=== PATIENT | male | born 1980 | race Caucasian/White ===

== ENCOUNTER 2017-04-29 17:28 | Emergency (ER) | payer OTHER ==
[~2017-04-29] VITALS: Ht 170.2 cm; Wt 66.7 kg
[2017-04-29] MEDS ORDERED: NORCO 5-325 TA1 EACH PO (18:18)
[2017-04-29] MEDS ORDERED: KEFLEX500 M1 PO (18:18)
[2017-04-29 18:31] VITALS: BP 139/88
== END 2017-04-29 18:31 | disposition home or self-care (01) ==
LOC: M.ERS 17:28
DX: S51.811A Laceration without foreign body of right forearm, initial encounter (principal); W26.8XXA Contact with other sharp object(s), not elsewhere classified, initial encounter; Y93.89 Activity, other specified; Y92.89 Other specified places as the place of occurrence of the external cause; Y99.8 Other external cause status